=== PATIENT | female | born 1935 | race Caucasian/White ===

== ENCOUNTER 2020-08-28 18:26 | Inpatient (IN) | payer MEDICARE, OTHER ==
[~2020-08-28] VITALS: Ht 165.1 cm; Wt 56.3 kg
[2020-08-28 19:58] LABS: BASOPHIL 0.7 % (0-2); EOSINOPHIL 0 % (0-7); HCT 32.5 % (37.0-47.0); HGB 10.4 g/dl (12.5-16.0); LYMPHOCYTE 13.1 % (15-48); MCH 31.7 pg (25.0-31.0); MCV 99.1 fL (78.0-100.0); MONOCYTE 16.2 % (0-12); NEUTROPHIL 69.7 % (41-80); NRBC 0; PLT 360 K/uL (150-400); RBC 3.28 M/uL (4.20-5.40); RDW 16.8 % (11.5-14.0); WBC 8.8 K/uL (4.0-10.5)
[2020-08-28 20:08] LABS: INR 1.17 (0.9-1.2); PROTHROMBIN TIME 14.3 SECONDS (11.8-13.4); PTT 32.1 SECONDS (24.4-34.7)
[2020-08-28 20:22] LABS: ALBUMIN 3.2 g/dL (3.4-5.0); BILIRUBIN - TOTAL 0.5 mg/dL (0.2-1.0); BUN/CREAT RATIO (CALC) 24.6 RATIO; CREATININE 0.65 mg/dL (0.51-0.95); GLOBULIN (CALCULATION) 2.5 g/dL; POTASSIUM 3.7 mmol/L (3.5-5.1); PRO-BNP 443 pg/mL (<450); TOTAL PROTEIN 5.7 g/dL (6.4-8.2)
[2020-08-29] MEDS ORDERED: ALIGN4 MG PO (02:07)
[2020-08-29] MEDS ORDERED: ASPIRIN EC81 MG PO (02:07)
[2020-08-29] MEDS ORDERED: LIPITOR 10MG TA10 MG PO (02:08)
[2020-08-29] MEDS ORDERED: CYANOCOBAL1000 MCG/1 IM (02:10)
[2020-08-29] MEDS ORDERED: ZERVIATE1 EACH PO (02:10)
[2020-08-29] MEDS ORDERED: FIBERCON625 MG PO (02:12)
[2020-08-29] MEDS ORDERED: LASIX20 MG PO (02:12)
[2020-08-29] MEDS ORDERED: XALATAN2.5 ML EYEBOTH (02:13)
[2020-08-29] MEDS ORDERED: LINZESS145 MCG PO (02:14)
[2020-08-29] MEDS ORDERED: LINZESS72 MCG PO (02:16)
[2020-08-29] MEDS ORDERED: DAILY VALUE1 EACH PO (02:17)
[2020-08-29] MEDS ORDERED: MYSOLINE50 MG PO (02:18)
[2020-08-29] MEDS ORDERED: PLAVIX75 MG PO (02:18)
[2020-08-29] MEDS ORDERED: SINGULAIR10 MG PO (02:19)
[2020-08-29] MEDS ORDERED: K-DUR20 MEQ PO (02:19)
[2020-08-29] MEDS ORDERED: BETIMOL5 ML EYEBOTH (02:20)
[2020-08-29] MEDS ORDERED: LYRICA25 MG PO (02:21)
[2020-08-29] MEDS ORDERED: PEPCID AC20 MG PO (02:21)
[2020-08-29] MEDS ORDERED: ACETAMINOPHEN325 MG PO (02:22)
[2020-08-29] MEDS ORDERED: NORCO 5/3251 EACH PO (02:24)
[2020-08-29 06:29] LABS: BASOPHIL 0.5 % (0-2); EOSINOPHIL 0 % (0-7); HCT 31.6 % (37.0-47.0); HGB 10.3 g/dl (12.5-16.0); LYMPHOCYTE 6.6 % (15-48); MCH 32.2 pg (25.0-31.0); MCHC 32.6 g/dL (32.0-36.0); MCV 98.8 fL (78.0-100.0); MONOCYTE 4.5 % (0-12); MPV 10.2 fL (6.0-9.5); NEUTROPHIL 87.7 % (41-80); NRBC 0; PLT 364 K/uL (150-400); RDW 16.7 % (11.5-14.0)
[2020-08-29 06:56] LABS: CKMB 0.5 ng/mL (0.0-3.6); PRO-BNP 464 pg/mL (<450)
[2020-08-29 06:58] LABS: ALBUMIN 2.8 g/dL (3.4-5.0); BILIRUBIN - TOTAL 0.5 mg/dL (0.2-1.0); BUN/CREAT RATIO (CALC) 23.4 RATIO; CREATININE 0.64 mg/dL (0.51-0.95); GLOBULIN (CALCULATION) 2.9 g/dL; MAGNESIUM 1.9 mg/dL (1.8-2.4); PHOSPHORUS 2.5 mg/dL (2.6-4.7); POTASSIUM 3.2 mmol/L (3.5-5.1); TOTAL PROTEIN 5.7 g/dL (6.4-8.2)
[2020-08-29 12:17] LABS: BILIRUBIN NEGATIVE (NEGATIVE); BLOOD NEGATIVE Ery/uL (NEGATIVE); CLARITY CLEAR (CLEAR); COLOR YELLOW (YELLOW); GLUCOSE (U) NORMAL (NORMAL); LEUKOCYTES NEGATIVE Leu/uL (NEGATIVE); NITRITE NEGATIVE (NEGATIVE); PROTEIN 2+ mg/dL (NEGATIVE); UROBILINOGEN 0.2 mg/dL (0.2-1.0); pH 5.5 (5.0-9.0)
[2020-08-29 12:26] LABS: BACTERIA TRACE; YEAST PRESENT
[2020-08-29] MEDS ORDERED: MYCOLOG15 GM TOP (17:28)
[2020-08-30 05:49] LABS: BASOPHIL 0.3 % (0-2); EOSINOPHIL 0 % (0-7); HCT 28.4 % (37.0-47.0); HGB 9.4 g/dl (12.5-16.0); LYMPHOCYTE 7.9 % (15-48); MCH 32.6 pg (25.0-31.0); MCHC 33.1 g/dL (32.0-36.0); MCV 98.6 fL (78.0-100.0); MONOCYTE 10.8 % (0-12); MPV 10.3 fL (6.0-9.5); NEUTROPHIL 80.1 % (41-80); NRBC 0; PLT 370 K/uL (150-400); RBC 2.88 M/uL (4.20-5.40); WBC 11.6 K/uL (4.0-10.5)
[2020-08-30 06:18] LABS: BUN/CREAT RATIO (CALC) 31.5 RATIO; CREATININE 0.73 mg/dL (0.51-0.95); MAGNESIUM 1.9 mg/dL (1.8-2.4); PHOSPHORUS 2.9 mg/dL (2.6-4.7); POTASSIUM 4.5 mmol/L (3.5-5.1)
[2020-08-30 06:28] LABS: PRO-BNP 890 pg/mL (<450)
[2020-08-31 05:55] LABS: BASOPHIL 0.2 % (0-2); EOSINOPHIL 0 % (0-7); HCT 28.3 % (37.0-47.0); LYMPHOCYTE 7.3 % (15-48); MCH 31.7 pg (25.0-31.0); MCHC 31.8 g/dL (32.0-36.0); MCV 99.6 fL (78.0-100.0); MONOCYTE 5.2 % (0-12); MPV 10.1 fL (6.0-9.5); NEUTROPHIL 85.5 % (41-80); NRBC 0; PLT 379 K/uL (150-400); RBC 2.84 M/uL (4.20-5.40); RDW 17.1 % (11.5-14.0); WBC 11.1 K/uL (4.0-10.5)
[2020-08-31 06:09] LABS: BUN/CREAT RATIO (CALC) 31.5 RATIO; CREATININE 0.73 mg/dL (0.51-0.95); MAGNESIUM 1.8 mg/dL (1.8-2.4); POTASSIUM 4.8 mmol/L (3.5-5.1)
[2020-09-01] MEDS ORDERED: VIBRAMYCIN100 MG PO (09:49)
[2020-09-01] MEDS ORDERED: NORCO 5/3251 EACH PO (09:49)
[2020-09-01] MEDS ORDERED: CEFDINIR300 MG PO (09:49)
[2020-09-01] MEDS ORDERED: VENTOLIN HFA IN18 GM INH (10:09)
--- NOTE | 2020-09-01 10:30 | NUR ---
Siter Pamela will be discharged today to [facility]. Please call report to: [phone] / 2nd floor and fax DS to: [phone]. Sister [facility] will transport and bring an 02 tank. Report given to MS BENITA Rizo.
--- NOTE | 2020-09-01 13:48 | NUR ---
PATIENT D/C'D TO [facility] BY EMS. REPORT GIVEN. SCRIPTS SENT WITH PATIENT.
== END 2020-09-01 13:35 | DRG 195 ==
LOC: FER 18:26 → FMS 23:17 → FER 23:17 → FMS 08-30 17:40
PROVIDERS: Internal Medicine; Nurse Practitioner; ADMIT Internal Medicine
DX: J18.1 Lobar pneumonia, unspecified organism (principal); M19.90 Unspecified osteoarthritis, unspecified site; I25.10 Atherosclerotic heart disease of native coronary artery without angina pectoris; R09.02 Hypoxemia; Z20.822 Contact with and (suspected) exposure to COVID-19; Z66 Do not resuscitate; Z88.1 Allergy status to other antibiotic agents; Z88.0 Allergy status to penicillin; Z88.8 Allergy status to other drugs, medicaments and biological substances; I25.2 Old myocardial infarction; Z90.49 Acquired absence of other specified parts of digestive tract; Z95.5 Presence of coronary angioplasty implant and graft
CPT/HCPCS: 36415; 36600; 71045; 71275; 80048; 80053; 81001; 82553; 82803; 83605; 83735; 83880; 84100; 84145; 84484; 85025; 85379; 85610; 85730; 87040; 93005; 94010; 94640; 94664; 94760; 94762; 97166; 97535; J0692; J0713; J1650; J2930; J3420; J7050; J7512; Q9967; U0002